=== PATIENT | male | born 2005 | race Caucasian/White ===

== ENCOUNTER 2024-04-16 23:02 | Emergency (ER) | payer BC ==
[~2024-04-16] VITALS: Ht 185.4 cm; Wt 85.9 kg
[2024-04-16 23:07] VITALS: TEMP 97.7
[2024-04-16] MEDS ORDERED: Ondansetron 4 MG/2 ML VIAL IV ONE (23:30)
[2024-04-16] MEDS ORDERED: NS 1,000 ML IV ONE (23:30)
[2024-04-16 23:34] LABS: BASO # 0.1 K/mm3 (0.0-0.2); BASO % 0.4 % (0.0-2.0); EOS # 0.1 K/mm3 (0.0-0.7); EOS % 0.7 % (0.0-4.0); GRAN # 11.6 K/mm3 (1.4-6.5); GRAN % 84.2 % (42.2-75.2); HEMATOCRIT 46.1 % (42.0-52.0); HEMOGLOBIN 16.2 g/dl (13.5-18.0); LYMPH # 1.3 K/mm3 (1.2-3.4); LYMPH % 9.1 % (20.0-51.0); MEAN CELL VOLUME 88 fl (80.0-100.0); MEAN CORPUSCULAR HEMOGLOBIN 31 pg (27-31); MEAN CORPUSCULAR HGB CONC 35 g/dl (33.0-37.0); MEAN PLATELET VOLUME 9.1 fl (7.4-10.4); MONO # 0.7 K/mm3 (0.1-0.6); MONO % 5.2 % (1.7-9.3); PLATELET COUNT 212 K/mm3 (130-400); RED BLOOD COUNT 5.23 M/mm3 (4.20-5.60); REDCELL DISTRIBUTION WIDTH-CV 12.2 % (11.5-14.5)
[2024-04-16 23:54] LABS: ALANINE AMINOTRANSFERASE 27 U/L (0-55); ALBUMIN 4.7 g/dL (3.5-5.0); ALKALINE PHOSPHATASE 85 U/L (40-150); ANION GAP 11 mmol/L (7-16); AST,SGOT 40 U/L (5-34); BILIRUBIN,TOTAL 0.4 mg/dL (0.2-1.2); BLOOD UREA NITROGEN 16 mg/dL (9-21); CALCIUM 9.7 mg/dL (8.4-10.2); CHLORIDE 106 mEq/L (98-107); CREATINE KINASE 672 U/L (30-200); GLUCOSE 96 mg/dL (70-99); SODIUM 141 mEq/L (136-145); TOTAL PROTEIN 7.6 g/dl (6.2-8.1)
[2024-04-16 23:58] LABS: SALICYLATE < 5.0 mg/dL (15.0-30.0)
[2024-04-17 00:49] LABS: COLLECTION METHOD CLEAN CATCH
[2024-04-17 00:52] LABS: URINE APPEARANCE CLEAR (CLEAR/HAZY); URINE BLOOD NEGATIVE (NEGATIVE); URINE COLOR YELLOW (YELLOW); URINE GLUCOSE NEGATIVE (NEGATIVE); URINE KETONE NEGATIVE (NEGATIVE); URINE NITRATE NEGATIVE (NEGATIVE); URINE PROTEIN(semi-quant) NEGATIVE (NEGATIVE); URINE UROBILINOGEN 0.2 E.U/dL (0.2-1.0)
[2024-04-17 01:10] VITALS: BP 130/70; PULSE 61
[2024-04-17 01:15] LABS: TRICYCLIC ANTIDEPRESS URINE NEGATIVE (NEGATIVE)
== END 2024-04-17 01:10 | disposition home or self-care (01) ==
LOC: COL.ER 23:02
PROVIDERS: Emergency Medicine
DX: S09.90XA Unspecified injury of head, initial encounter (principal); S00.83XA Contusion of other part of head, initial encounter; S00.31XA Abrasion of nose, initial encounter; F17.210 Nicotine dependence, cigarettes, uncomplicated; F17.290 Nicotine dependence, other tobacco product, uncomplicated; X58.XXXA Exposure to other specified factors, initial encounter
CPT/HCPCS: J2405; J7030